=== PATIENT | male | born 1935 | race Caucasian/White ===

== ENCOUNTER 2018-03-12 00:03 | Emergency (ER) | payer MEDICARE ==
[2018-03-12 01:17] LABS: ALANINE AMINOTRANSFERASE 19 U/L (12-78); ALBUMIN 3.4 G/DL (3.4-5.0); ALBUMIN/GLOBULIN RATIO 1.2 (1.1-1.5); ALKALINE PHOSPHATASE 71 IU/L (46-116); ANION GAP 8 (8-16); ASPARTATE AMINO TRANSFERASE 15 U/L (10-37); BILIRUBIN,TOTAL 0.4 MG/DL (0.1-1.0); BLOOD UREA NITROGEN 19 MG/DL (7-18); BUN/CREATININE RATIO 17.9 (5.4-32.0); CALCIUM 10.2 MG/DL (8.5-10.1); CHLORIDE 106 MMOL/L (99-107); CREATININE 1.06 MG/DL (0.60-1.10); GLUCOSE 100 MG/DL (70-104); POTASSIUM 3.8 MMOL/L (3.5-5.1); SODIUM 140 MMOL/L (135-145); TOTAL CARBON DIOXIDE 25.8 MMOL/L (24-32); TOTAL PROTEIN 6.3 G/DL (6.4-8.2); eGFR 67 ML/MIN
[2018-03-12 01:31] LABS: BASOPHILS # (AUTO) 0.1 X10'3 (0-0.2); BASOPHILS % (AUTO) 1.6 % (0-1); EOSINOPHILS # (AUTO) 0.4 X10'3 (0-0.9); EOSINOPHILS % (AUTO) 5.4 % (0-6); HEMATOCRIT 50.3 % (42.0-52.0); HEMOGLOBIN 16.5 g/dl (14.0-17.9); LYMPHOCYTES # (AUTO) 1.9 X10'3 (1.1-4.8); LYMPHOCYTES % (AUTO) 28.8 % (21-51); MEAN CORPUSCULAR HEMOGLOBIN 30.4 PG (27.0-31.0); MEAN CORPUSCULAR HGB CONC 32.8 % (33.0-36.5); MEAN CORPUSCULAR VOLUME 92.7 FL (78-98); MEAN PLATELET VOLUME 9.1 FL (7.4-10.4); MONOCYTES # (AUTO) 0.7 X10'3 (0-0.9); NEUTROPHILS # (AUTO) 3.5 X10'3 (1.8-7.7); NEUTROPHILS % (AUTO) 54.2 % (42-75); PLATELET COUNT 184 X10'3 (140-440); RED BLOOD COUNT 5.42 X10'6 (4.70-6.10); RED CELL DISTRIBUTION WIDTH 13.7 % (11.5-14.5); WHITE BLOOD COUNT 6.6 X10'3 (4.5-11.0)
[2018-03-12 02:34] VITALS: BP 143/98
== END 2018-03-12 03:07 | disposition home or self-care (01) ==
LOC: ER 00:03
DX: R06.02 Shortness of breath (principal); K08.89 Other specified disorders of teeth and supporting structures
CPT/HCPCS: 36415; 71045; 80053; 83735; 83880; 84439; 84443; 84484; 85025; 93005; 99285

== ENCOUNTER 2019-02-05 07:16 | Emergency (ER) | payer MEDICARE ==
[~2019-02-05] VITALS: Ht 170.2 cm; Wt 91.7 kg
[2019-02-05 07:18] VITALS: BP 156/92
[2019-02-05] MEDS ORDERED: ibuprofen tablet 400 MG TABLET PO ONE (08:25)
[2019-02-05] MEDS ORDERED: acetaminophen 325mg tablet PO ONE (08:25)
[2019-02-05] MEDS ORDERED: amox tr/potassium clavulanate 875/125mg TAB PO ONE (08:25)
[2019-02-05 09:16] LABS: BASOPHILS # (AUTO) 0.1 X10'3 (0-0.2); BASOPHILS % (AUTO) 1.2 % (0-1); EOSINOPHILS # (AUTO) 0.1 X10'3 (0-0.9); HEMOGLOBIN 17.2 g/dl (14.0-17.9); LYMPHOCYTES # (AUTO) 0.7 X10'3 (1.1-4.8); LYMPHOCYTES % (AUTO) 11.2 % (21-51); MEAN CORPUSCULAR HEMOGLOBIN 31.4 PG (27.0-31.0); MEAN CORPUSCULAR HGB CONC 33.8 g/dL (33.0-36.5); MEAN CORPUSCULAR VOLUME 92.9 FL (78-98); MEAN PLATELET VOLUME 8.4 FL (7.4-10.4); MONOCYTES # (AUTO) 0.4 X10'3 (0-0.9); MONOCYTES % (AUTO) 6.8 % (2-12); NEUTROPHILS # (AUTO) 5.3 X10'3 (1.8-7.7); NEUTROPHILS % (AUTO) 79.8 % (42-75); PLATELET COUNT 175 X10'3 (140-440); RED BLOOD COUNT 5.49 X10'6 (4.70-6.10); RED CELL DISTRIBUTION WIDTH 14.2 % (11.5-14.5); WHITE BLOOD COUNT 6.6 X10'3 (4.5-11.0)
[2019-02-05 09:31] LABS: ALANINE AMINOTRANSFERASE 22 U/L (12-78); ALBUMIN 3.7 G/DL (3.4-5.0); ALBUMIN/GLOBULIN RATIO 1.2 (1.1-1.5); ALKALINE PHOSPHATASE 73 IU/L (46-116); ANION GAP 6 (8-16); ASPARTATE AMINO TRANSFERASE 13 U/L (10-37); BILIRUBIN,TOTAL 0.8 MG/DL (0.1-1.0); BLOOD UREA NITROGEN 13 MG/DL (7-18); BUN/CREATININE RATIO 12.3 (5.4-32.0); CALCIUM 10.3 MG/DL (8.5-10.1); CHLORIDE 109 MMOL/L (99-107); CREATININE 1.06 MG/DL (0.60-1.10); GLUCOSE 85 MG/DL (70-104); POTASSIUM 3.8 MMOL/L (3.5-5.1); SODIUM 143 MMOL/L (135-145); TOTAL PROTEIN 6.7 G/DL (6.4-8.2); eGFR 67 ML/MIN
[2019-02-05 09:59] LABS: C-REACTIVE PROTEIN 0.54 MG/DL (0.0-0.5)
[2019-02-05] MEDS ORDERED: AMOX500C2 PO (10:14)
== END 2019-02-05 10:29 | disposition home or self-care (01) ==
LOC: ER 07:17
DX: K08.89 Other specified disorders of teeth and supporting structures (principal); K13.79 Other lesions of oral mucosa; R68.84 Jaw pain; R51 Headache; R22.0 Localized swelling, mass and lump, head; R09.89 Other specified symptoms and signs involving the circulatory and respiratory systems; F03.90 Unspecified dementia, unspecified severity, without behavioral disturbance, psychotic disturbance, mood disturbance, and anxiety; Z79.2 Long term (current) use of antibiotics
CPT/HCPCS: 36415; 80053; 85025; 85651; 86140; 99284

== ENCOUNTER 2020-01-26 10:37 | Emergency (ER) | payer MEDICARE ==
[~2020-01-26] VITALS: Ht 170.2 cm; Wt 81.8 kg
[~2020-01-26 10:37] MED LIST: ACET325C6; FLO0.4C PO; LACT1CAP26 PO; LEVO750T46 PO; LISI-600 PO; MELA1TAB28 PO; QUET100T33 PO; folic acid tablet PO; thiamine tablet PO
--- NOTE | 2020-01-26 11:06 | NUR ---
NURSE HAD PALPATED FIRM MASS IN LEFT INGUINAL AREA UPON ARRIVAL TO ROOM. THIS MASS IS NOT NOTED AT THIS TIME, WITH ER MD PRESENT IN ROOM. LEFT INGUINAL AREA IS SOFT, BUT PATIENT WINCES WHEN AREA IS PALPATED. RESTING ON GURNEY AT PRESENT.
--- NOTE | 2020-01-26 11:36 | NUR ---
Pt is awaiting CT scan of the abdomen at this time. Pt given a warm blanket and is under close observation to prevent fall for the patient due to his baseline mental status and forgetting his limitations.
[2020-01-26 11:37] VITALS: BP 165/92
[2020-01-26] MEDS ORDERED: bisacodyl 10mg suppository rectal RC STA (12:58)
[2020-01-26] MEDS ORDERED: polyethylene glycol 3350 17gm powd pack PO ONE (13:00)
[2020-01-26] MEDS ORDERED: POLY17PO10 PO (13:00)
[2020-01-26] MEDS ORDERED: DOCU-170 PO (13:00)
--- NOTE | 2020-01-26 14:23 | NUR ---
TC TO [facility]. REPORT TO NURSE JOVNA. PATIENT EN ROUTE TO FACILITY PER IGOR CARGO.
== END 2020-01-26 14:00 | disposition hospice, home (50) ==
LOC: ER 10:37
DX: F03.90 Unspecified dementia, unspecified severity, without behavioral disturbance, psychotic disturbance, mood disturbance, and anxiety (principal); K40.90 Unilateral inguinal hernia, without obstruction or gangrene, not specified as recurrent; K59.00 Constipation, unspecified; I10 Essential (primary) hypertension; Z79.899 Other long term (current) drug therapy
CPT/HCPCS: 74176; 99284